=== PATIENT | female | born 1980 | race Hispanic/Latino ===

== ENCOUNTER 2018-03-07 06:25 | Inpatient (IN) | payer OTHER ==
[2018-03-07 06:26] VITALS: BMI 26.6
[2018-03-07] MEDS ORDERED: Albuterol-Ipratrop 3 mg / 0.5 (3 ml) UD IH STA (06:42)
--- NOTE | 2018-03-07 06:50 | ED PDOC ---
Arrival/HPI - General Chief Complaint: Shortness Of Breath Time Seen by Provider: 03/07/18 06:36 Historian: Patient - History of Present Illness Narrative History of Present Illness (Text): 03/07/18 06:41 A 37 year old female, whose past medical history includes hypothyroidism, presents to the emergency department complaining of shortness of breath. Patient reports last week she went to an urgent Care center for similar complaint and was told she has an enlarged heart, therefore recommending her to see a gynecologist. Patient mentions she has an appointment some time this week to see one. Patient ntoes also experiencing palpitations, but denies any chest pain, fever, chills, headache, dizziness, cough, nausea, vomiting, abdominal pain, or any other complaints. No PMD Past Medical History - Provider Review Nursing Documentation Reviewed: Yes - Tetanus Immunization Tetanus Immunization: Unknown - Past Medical History Past Medical History: No Previous - Endocrine/Metabolic Hx Hypothyroidism: Yes - Psychiatric Hx Substance Use: No - Surgical History Other/Comment: pyloric stenosis - Anesthesia Hx Anesthesia: Yes Hx Anesthesia Reactions: No - Suicidal Assessment Feels Threatened In Home Enviroment: No Family/Social History - Physician Review Nursing Documentation Reviewed: Yes Family/Social History: No Known Family HX Smoking Status: Never Smoked Hx Alcohol Use: Yes Frequency of alcohol use: Socially Hx Substance Use: No Allergies/Home Meds Allergies/Adverse Reactions: Allergies No Known Allergies Allergy (Verified 03/07/18 06:30) Home Medications: Home Meds Medication Instructions Recorded Confirmed Control Pill 1 tab PO DAILY 03/07/18 03/07/18 Levothyroxine [Synthroid] 100 mcg PO DAILY 03/07/18 03/07/18 Vilazodone HCl [Viibryd] 40 mg PO DAILY 03/07/18 03/07/18 Review of Systems - Physician Review All systems were reviewed & negative as marked: Yes - Review of Systems Constitutional: absent: Fevers, Night Sweats Respiratory: SOB. absent: Cough Cardiovascular: Palpitations. absent: Chest Pain Gastrointestinal: absent: Abdominal Pain, Nausea, Vomiting Neurological: absent: Headache, Dizziness Physical Exam Vital Signs Reviewed: Yes Vital Signs Temp Pulse Resp BP Pulse Ox 03/07/18 09:36 97.8 F 100 H 22 138/90 100 03/07/18 09:00 107 H 18 135/89 99 03/07/18 07:47 114 H 20 139/99 H 99 03/07/18 06:45 100 03/07/18 06:30 108 H 20 140/90 99 Blood Pressure: Normal Pulse: Regular Respiratory Rate: Normal Appearance: Positive for: Well-Appearing, Non-Toxic, Comfortable Pain Distress: None Mental Status: Positive for: Alert and Oriented X 3 - Systems Exam Head: Present: Atraumatic, Normocephalic Pupils: Present: PERRL Extroacular Muscles: Present: EOMI Conjunctiva: Present: Normal Ears: Present: Normal Mouth: Present: Moist Mucous Membranes Respiratory/Chest: Present: Rales (at basis of lungs) Cardiovascular: Present: Regular Rate and Rhythm, Normal S1, S2. No: Murmurs Abdomen: No: Tenderness, Distention, Peritoneal Signs Upper Extremity: Present: Normal Inspection. No: Cyanosis, Edema Lower Extremity: Present: Normal Inspection. No: Edema Neurological: Present: GCS=15, CN II-XII Intact, Speech Normal Skin: Present: Warm, Dry, Normal Color. No: Rashes Psychiatric: Present: Alert, Oriented x 3, Normal Insight, Normal Concentration Medical Decision Making ED Course and Treatment: 03/07/18 06:44 Impression: 37 year old female with shortness of breath. Physical exam shows rales at basis of lungs. Plan: -- EKG -- Chest X-ray -- Labs -- Venous Blood Gas -- Duoneb -- Blood Culture -- POC Urine -- Reassess and disposition Progress Notes: \ - Lab Interpretations Lab Results: 03/07/18 06:39 03/07/18 06:39 Lab Results 03/07/18 06:44: pO2 40, VBG pH 7.35, VBG pCO2 43.0, VBG HCO3 23.7, VBG Total CO2 25.0, VBG O2 Sat (Calc) 76.9 H, VBG Base Excess -2.0 L, VBG Potassium 3.8, Glucose 115 H, Lactate 1.8, FiO2 21.0, Sodium 135.0, Chloride 103.0, Venous Blood Potassium 3.8 03/07/18 06:39: Sodium 138, Potassium 3.5 L, Chloride 102, Carbon Dioxide 22, Anion Gap 18, BUN 15, Creatinine 0.7, Est GFR ( Amer) > 60, Est GFR (Non- Af Amer) > 60, Random Glucose 112 H, Calcium 8.3 L, Magnesium 1.7, Total Bilirubin 0.6, AST 17, ALT 16, Alkaline Phosphatase 53, Lactate Dehydrogenase 439, Total Creatine Kinase 83, Troponin I < 0.01, NT-Pro-B Natriuret Pep 504 H, Total Protein 7.0, Albumin 4.3, Globulin 2.7, Albumin/Globulin Ratio 1.6 03/07/18 06:39: PT 13.5 H, INR 1.17 H, APTT 27.8, D-Dimer, Quantitative < 200 03/07/18 06:39: WBC 6.7, RBC 4.88, Hgb 13.8, Hct 40.2, MCV 82.4, MCH 28.3, MCHC 34.3, RDW 13.6, Plt Count 290, MPV 10.0, Gran % 81.0 H, Lymph % (Auto) 13.7 L, [place] % (Auto) 4.3, Eos % (Auto) 0.7 L, Baso % (Auto) 0.3, Gran # 5.44, Lymph # ( Auto) 0.9 L, [place] # (Auto) 0.3, Eos # (Auto) 0.1, Baso # (Auto) 0.02 - RAD Interpretation Radiology Orders: 03/07/18 06:47 CHEST PORTABLE [RAD] Stat - EKG Interpretation EKG Interpretation (Text): 03/07/18 06:59 rate 103 lbbb sinus tachycardia - Medication Orders Current Medication Orders: Albuterol/Ipratropium (Duoneb 3 Mg/0.5 Mg (3 Ml) Ud) 3 ml IH [id number] [facility] Last Admin: 03/08/18 02:26 Dose: Not Given Non-Admin Reason: Patient Refused Aspirin (Aspirin Chewable) 81 mg PO DAILY [facility] Last Admin: 03/07/18 11:04 Dose: 81 mg Azithromycin (Zithromax) 500 mg PO DAILY [facility] PRN Reason: Protocol Enoxaparin Sodium (Lovenox) 60 mg SC Q12H [facility] PRN Reason: Protocol Last Admin: 03/08/18 05:32 Dose: 60 mg Subcutaneous Administrations Document 03/08/18 05:32 KOPPS (Rec: 03/08/18 05:33 KOPPS [id number]) Injection Site MAR Injection Site Left Abdomen Charges for Administration # of Subcutaneous Administrations 1 Furosemide (Lasix) 40 mg IVP DAILY JG Ceftriaxone Sodium (Rocephin 1 Gram Ivpb) 1 gm in 100 mls @ 100 mls/hr IVPB DAILY JG PRN Reason: Protocol Levothyroxine Sodium (Synthroid) 100 mcg PO DAILY JG Last Admin: 03/07/18 11:04 Dose: 100 mcg (Vilazodone Hcl [ (Viibryd] 40 Mg)) 40 mg PO DAILY JG Last Admin: 03/07/18 11:04 Dose: Potassium Chloride (K-Dur 20 Meq Er Tab) 20 meq PO BRK JG Last Admin: 03/07/18 11:04 Dose: 20 meq Discontinued Medications Albuterol/Ipratropium (Duoneb 3 Mg/0.5 Mg (3 Ml) Ud) 3 ml IH STAT STA Stop: 03/07/18 06:43 Last Admin: 03/07/18 06:50 Dose: 3 ml Azithromycin (Zithromax) 500 mg PO STAT STA PRN Reason: Protocol Stop: 03/07/18 18:47 Last Admin: 03/07/18 18:53 Dose: 500 mg Furosemide (Lasix) 40 mg IVP ONCE ONE Stop: 03/07/18 14:12 Last Admin: 03/07/18 15:21 Dose: 40 mg MAR Blood Pressure Document 03/07/18 15:21 SUNNY (Rec: 03/07/18 15:21 SUNNY [id number]) Blood Pressure Blood Pressure (100/60-150/90) 141/104 IVP Administration Document 03/07/18 15:21 SUNNY (Rec: 03/07/18 15:21 SUNNY [id number]) Charges for Administration # of IVP Administrations 1 Ceftriaxone Sodium (Rocephin 1 Gram Ivpb) 1 gm in 100 mls @ 100 mls/hr IVPB STAT STA PRN Reason: Protocol Stop: 03/07/18 19:44 Last Admin: 03/07/18 18:52 Dose: 100 mls/hr eMAR Start Stop Document 03/07/18 18:52 SUNNY (Rec: 03/07/18 18:53 SUNNY [id number]) Intravenous Solution Start Date 03/07/18 Start Time 18:52 End Date 03/07/18 End time 19:22 Total Infusion Time 30 - Transfer of Care Patient signed out to Dr:: imm labs and dispo - Scribe Statement The provider has reviewed the documentation as recorded by the Francescoibdiego Vargas Provider Scribe Attestation: All medical record entries made by the Scribe were at my direction and personally dictated by me. I have reviewed the chart and agree that the record accurately reflects my personal performance of the history, physical exam, medical decision making, and the department course for this patient. I have also personally directed, reviewed, and agree with the discharge instructions and disposition. Disposition/Present on Arrival - Present on Arrival Any Indicators Present on Arrival: No History of DVT/PE: No History of Uncontrolled Diabetes: No Urinary Catheter: No History of Decub. Ulcer: No History Surgical Site Infection Following: None - Disposition Have Diagnosis and Disposition been Completed?: Yes Diagnosis: Dyspnea on exertion Disposition: HOSPITALIZED Disposition Time: 07:00 Patient Problems: Current Active Problems Problem Status Onset Dyspnea on exertion Acute Condition: FAIR
[2018-03-07 07:01] LABS: BASO # 0.02 K/mm3 (0.0-2.0); BASO % 0.3 % (0.0-3.0); EOS # 0.1 (0.0-0.7); EOS % 0.7 % (1.5-5.0); GRAN # 5.44 (1.4-6.5); HEMOGLOBIN 13.8 g/dL (12.0-16.0); LYMPH # 0.9 (1.2-3.4); LYMPH % 13.7 % (22.0-35.0); MEAN CELL VOLUME 82.4 fl (80.0-105.0); MEAN CORPUSCULAR HEMOGLOBIN 28.3 pg (25.0-35.0); MEAN CORPUSCULAR HGB CONC 34.3 g/dl (31.0-37.0); MONO # 0.3 (0.1-0.6); MONO % 4.3 % (1.0-6.0); RBC 4.88 10^6/uL (3.5-6.1); RED CELL DISTRIBUTION WIDTH 13.6 % (11.5-14.5); WHITE BLOOD COUNT 6.7 10^3/ul (4.5-11.0)
[2018-03-07 07:09] LABS: ALB/GLOB RATIO 1.6 (1.1-1.8); ALBUMIN 4.3 g/dL (3.0-4.8); ALT/SGPT 16 U/L (7-56); AST/SGOT 17 U/L (14-36); BLOOD UREA NITROGEN 15 mg/dL (7-21); CALCIUM 8.3 mg/dL (8.4-10.5); GFR AFRICAN-AMERICAN > 60; GFR NON-AFRICAN AMERICAN > 60
[2018-03-07 07:21] LABS: B-TYPE NATRIURETIC PEPTIDE 504 pg/mL (0-450); TROPONIN I < 0.01 ng/mL
[2018-03-07 07:21] LABS: VENOUS BLOOD GAS PO2 40 mm/Hg (30-55); VENOUS BLOOD PH 7.35 (7.32-7.43)
[2018-03-07 07:52] LABS: INR 1.17 (0.93-1.08); PROTHROMBIN TIME 13.5 SECONDS (9.4-12.5)
[2018-03-07 07:53] LABS: PARTIAL THROMBOPLASTIN TIME 27.8 Seconds (25.1-36.5)
[2018-03-07 08:26] LABS: D DIMER < 200 ng/mL (0-243)
--- NOTE | 2018-03-07 09:01 | RAD ---
HISTORY: Shortness of breath. COMPARISON: No prior. FINDINGS: LUNGS: Right lower lobe infiltrate with air bronchograms consistent with pneumonia. PLEURA: No significant pleural effusion identified, no pneumothorax apparent. CARDIOVASCULAR: Normal. OSSEOUS STRUCTURES: No significant abnormalities. VISUALIZED UPPER ABDOMEN: Normal. OTHER FINDINGS: None. IMPRESSION: Extensive right lower lobe infiltrate/pneumonia.
--- NOTE | 2018-03-07 09:06 | ED PDOC ---
Physical Exam - Physical Exam Narrative Physical Exam (Text): Signed out to me at change of shift pending labs and disposition. 37 y/o F p/w dyspnea lasting about 2 days, occurred twice over past week. EKG shows LBBB, no previous EKGs. No chest pain. Patient treated as asthma exacerbation at Urgent Care this past week. Bibasilar crackles on auscultation. CXR shows possible R lower infiltrate, no fever or leukocytosis. ProBNP mildly elevated. Possible cardiomegaly? Dr. Hall accepts patient to her service covering for Dr. Luis and recommends Dr. Gutierrez for consultation. Vital Signs Pulse Resp BP Pulse Ox 03/07/18 07:47 114 H 20 139/99 H 99 03/07/18 06:45 100 03/07/18 06:30 108 H 20 140/90 99 Medical Decision Making - Lab Interpretations Lab Results: 03/07/18 06:39 03/07/18 06:39 Lab Results 03/07/18 06:44: pO2 40, VBG pH 7.35, VBG pCO2 43.0, VBG HCO3 23.7, VBG Total CO2 25.0, VBG O2 Sat (Calc) 76.9 H, VBG Base Excess -2.0 L, VBG Potassium 3.8, Glucose 115 H, Lactate 1.8, FiO2 21.0, Sodium 135.0, Chloride 103.0, Venous Blood Potassium 3.8 03/07/18 06:39: Sodium 138, Potassium 3.5 L, Chloride 102, Carbon Dioxide 22, Anion Gap 18, BUN 15, Creatinine 0.7, Est GFR ( Amer) > 60, Est GFR (Non- Af Amer) > 60, Random Glucose 112 H, Calcium 8.3 L, Magnesium 1.7, Total Bilirubin 0.6, AST 17, ALT 16, Alkaline Phosphatase 53, Lactate Dehydrogenase 439, Total Creatine Kinase 83, Troponin I < 0.01, NT-Pro-B Natriuret Pep 504 H, Total Protein 7.0, Albumin 4.3, Globulin 2.7, Albumin/Globulin Ratio 1.6 03/07/18 06:39: PT 13.5 H, INR 1.17 H, APTT 27.8, D-Dimer, Quantitative < 200 03/07/18 06:39: WBC 6.7, RBC 4.88, Hgb 13.8, Hct 40.2, MCV 82.4, MCH 28.3, MCHC 34.3, RDW 13.6, Plt Count 290, MPV 10.0, Gran % 81.0 H, Lymph % (Auto) 13.7 L, [place] % (Auto) 4.3, Eos % (Auto) 0.7 L, Baso % (Auto) 0.3, Gran # 5.44, Lymph # ( Auto) 0.9 L, [place] # (Auto) 0.3, Eos # (Auto) 0.1, Baso # (Auto) 0.02 - RAD Interpretation Radiology Orders: 03/07/18 06:47 CHEST PORTABLE [RAD] Stat - Medication Orders Current Medication Orders: Discontinued Medications Albuterol/Ipratropium (Duoneb 3 Mg/0.5 Mg (3 Ml) Ud) 3 ml IH STAT STA Stop: 03/07/18 06:43 Last Admin: 03/07/18 06:50 Dose: 3 ml Disposition/Present on Arrival - Present on Arrival Any Indicators Present on Arrival: No History of DVT/PE: No History of Uncontrolled Diabetes: No Urinary Catheter: No History of Decub. Ulcer: No History Surgical Site Infection Following: None - Disposition Have Diagnosis and Disposition been Completed?: Yes Diagnosis: Dyspnea on exertion Disposition: HOSPITALIZED Disposition Time: 09:06 Patient Plan: Admission, Telemetry Condition: FAIR Forms: [employer] (Lux[place]ish)
--- NOTE | 2018-03-07 09:13 | CARD ---
APPROVED REPORT EKG Measurement Heart [id number] <Conclusion> Sinus tachycardia Left bundle branch block No change
[2018-03-07] MEDS ORDERED: cefTRIAXone 1 gm 1 GM/100 ML BAG IVPB SCH (10:00)
[2018-03-07] MEDS ORDERED: Levothyroxine 100 MCG TAB PO SCH (10:30)
[2018-03-07] MEDS: Potassium Chloride 20 mEq ER Tab PO SCH (11:04)
[2018-03-07] MEDS ORDERED: Iohexol 350 MG/100 ML VIAL ONE (14:17)
[2018-03-07] MEDS: Enoxaparin 60 mg Syringe SC SCH (15:20)
--- NOTE | 2018-03-07 15:35 | CT ---
PROCEDURE: CT Chest with contrast (Pulmonary Angiogram) HISTORY: Chest pain COMPARISON: None available. TECHNIQUE: Axial computed tomography images were obtained of the chest in the pulmonary arterial phase of enhancement. Coronal and sagittal reformatted images were created and reviewed. Intravenous contrast dose: 100 cc Omnipaque 350. Mean Hounsfield unit values in the main pulmonary artery: 292.50. Radiation dose: Total exam DLP = 612.75 mGy-cm. This CT exam was performed using one or more of the following dose reduction techniques: Automated exposure control, adjustment of the mA and/or kV according to patient size, and/or use of iterative reconstruction technique. FINDINGS: PULMONARY ARTERIES: Unremarkable. No pulmonary embolism. AORTA: No acute findings. No thoracic aortic aneurysm. LUNGS: Subsegmental infiltrates right middle lobe, right lower lobe. Additional findings in the anterior segment right upper lobe noted. Similar less pronounced changes left lower lobe. PLEURAL SPACES: Unremarkable. No effusion or pneuomothorax. HEART: Unremarkable. No cardiomegaly. No significant pericardial effusion. LYMPH NODES: No lymphadenopathy. BONES, CHEST WALL: Unremarkable. No fracture or destructive lesion OTHER FINDINGS: Unremarkable. IMPRESSION: Unremarkable CT pulmonary angiogram. No pulmonary embolus. Multifocal subsegmental infiltrates affecting the all 3 lobes of the right lung and to lesser extent left lower lobe. Findings are likely acute infectious/inflammatory in nature.
[2018-03-07 17:25] LABS: BARBITURATES, UR NEGATIVE (NEGATIVE); BENZODIAZEPINES, UR NEGATIVE (NEGATIVE); OPIATES, UR NEGATIVE (NEGATIVE); PHENCYCLIDINE, UR NEGATIVE (NEGATIVE)
[2018-03-07] MEDS ORDERED: cefTRIAXone 1 gm 1 GM/100 ML BAG IVPB STA (18:45)
--- NOTE | 2018-03-07 18:51 | HP ---
ADMISSION NOTE HISTORY OF PRESENT ILLNESS: Ms. He is an young 37-year-old female presented to the ED with shortness of breath. She had episodic shortness of breath for past few weeks. She had an episode last week also, went to the urgent care and was told that she has enlarged heart. She was recommended to see a dough puncher. She has not made an appointment yet. Chest x-ray done in the ED showed cardiomegaly. She was found to be tachycardic. CT chest done today showed multifocal pneumonia on the right side and the left side. No fever. No cough with expectoration, shortness of breath at rest. PAST MEDICAL HISTORY: Hypothyroidism. PAST SURGICAL HISTORY: None. PERSONAL HISTORY: Nonsmoker. No history of alcohol abuse. FAMILY HISTORY: Noncontributory. SOCIAL HISTORY: Lives at home. ALLERGIES: NO KNOWN DRUG ALLERGIES REVIEW OF SYSTEMS: As per HPI. Rest of 12-point review of systems reviewed negative. PHYSICAL EXAMINATION: GENERAL: Comfortable in bed, mild respiratory distress. VITAL SIGNS: Heart rate is 108 per minute, respiratory rate 20 per minute, blood pressure 140/90, pulse ox is 99% on room air. HEENT: Pallor positive. NECK: Supple. No lymphadenopathy. CHEST: Air entry present and equal bilateral. No added sounds. CARDIOVASCULAR: S1, S2 normal. No murmur. No gallop. ABDOMEN: Soft, nontender. No hepatosplenomegaly. EXTREMITIES: No edema. EKG, sinus tachycardia, left bundle-branch block. Chest x-ray, cardiomegaly. LABORATORY DATA: Sodium 138, potassium 3.6, BUN 15, creatinine 0.7, BNP 504. White count 6.7, hemoglobin 13.8, hematocrit 40.2, platelets 290, granulocyte 81%. lymphocyte 13%. HOME MEDICATION: Synthroid. ASSESSMENT/ Plan : B/L PNA CHF Tachycardia Granulocytosis She will be admitted to telemetry monitoring. Cardiology consultation, Dr. Gutierrez requested. CT chest reviewed multifocal pneumonia. We will start ceftriaxone 1 g daily, Zithromax 500 mg p.o. daily. ID consultation, Dr. Saha requested. Continue Synthroid 100 mcg daily. Aspirin 81 mg daily, potassium 20 mEq, Lasix 40 mg IV daily. Cardiology consultation, Dr. Brown, covering for Dr. Gutierrez appreciated. Started her on Lovenox 60 mg subcutaneous every 12 for possible cardiac ischemia. We will continue that. CT angio negative for PE. Etelvina Hall MD A[place]LA[facility]
--- NOTE | 2018-03-07 23:37 | CON ---
DATE: 03/07/2018 CARDIOLOGY CONSULTATION REASON FOR CONSULTATION: Shortness of breath and left bundle-branch block. HISTORY OF PRESENT ILLNESS: The patient is a 37-year-old female who has a history of anxiety, history of hypothyroidism, presented because of shortness of breath for the past few days. She presented to an urgent center and was treated for asthma; however, without significant improvement. The patient denies retrosternal chest pain, and denies any dizziness or syncope. The patient has been on control pills for years, but denies any history of DVT or pulmonary embolism in the past. The patient is unaware of any prior cardiac history and does not recall having an EKG done in the past. The patient is scheduled to see chinese language professor at [facility] next week, but she does not know his name. The patient was found to have left bundle-branch block on the EKG. SOCIAL HISTORY: Nonsmoker, nondrinker. 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 REVIEW OF SYSTEMS: No fever or chills. No productive cough. No dizziness or syncope. MEDICATIONS: Aspirin 81 mg once a day, K-Dur 20 mEq once a day, Synthroid 100 mcg once a day. PHYSICAL EXAMINATION: GENERAL: The patient is a young middle-aged female, who does not appear to be in any distress. VITAL SIGNS: Blood pressure 125/85, heart rate 97, temperature 97.7, respirations 17. HEENT: Normocephalic. CHEST: Clear. HEART: S1 and S2 regular. ABDOMEN: Soft. EXTREMITIES: No edema. No calf tenderness. LABORATORY DATA: CBC, WBC 6.7, hemoglobin 13.8, hematocrit 40.2, platelet count 190,000. PT 13.5, INR is 1.17, PTT 27.8. D-dimer is less than 200. SMA-7, sodium 138, potassium 3.5, chloride 102, CO2 of 22, chloride is 112, BUN 15, creatinine 0.7. One set of troponin is negative. ProBNP is 504. Chest x-ray revealed mild cardiomegaly, right lower lobe infiltrate. EKG revealed sinus tachycardia at the rate of 103, left bundle-branch block. ASSESSMENT: 1. Shortness of breath, cardiomegaly and left bundle-branch block, rule out underlying cardiomyopathy. 2. Rule out pulmonary embolism. The patient has been on control pills for many years. 3. Hypothyroidism. 4. Mild hypokalemia. RECOMMENDATIONS: Continue aspirin 81 mg once a day, K-Dur 20 mEq once a day, Synthroid at 100 mcg once a day, I will administer one dose of 40 mg of IV Lasix, Lovenox 60 mg subcutaneous twice a day. Obtain stat CT angio of the chest. The patient is scheduled for an echocardiography study to be done tomorrow. In the meantime, the patient is on p.r.n. fluoxetine. The patient's case was discussed at length with the patient's family at the bedside. Colton Brown MD
[2018-03-08] MEDS: Albuterol-Ipratrop 3 mg / 0.5 (3 ml) UD IH SCH ×3 (02:26→07:57)
[2018-03-08] MEDS: Enoxaparin 60 mg Syringe SC SCH (05:32)
[2018-03-08 06:19] LABS: BASO # 0.02 K/mm3 (0.0-2.0); BASO % 0.4 % (0.0-3.0); EOS # 0.1 (0.0-0.7); EOS % 2.7 % (1.5-5.0); GRAN % 63.2 % (50.0-68.0); HEMOGLOBIN 13.1 g/dL (12.0-16.0); LYMPH # 1.2 (1.2-3.4); LYMPH % 25.9 % (22.0-35.0); MEAN CELL VOLUME 81.9 fl (80.0-105.0); MEAN CORPUSCULAR HEMOGLOBIN 27.9 pg (25.0-35.0); MEAN PLATELET VOLUME 9.9 fl (7.0-11.0); MONO # 0.4 (0.1-0.6); MONO % 7.8 % (1.0-6.0); RBC 4.7 10^6/uL (3.5-6.1); RED CELL DISTRIBUTION WIDTH 13.7 % (11.5-14.5); WHITE BLOOD COUNT 4.8 10^3/ul (4.5-11.0)
[2018-03-08 06:35] LABS: BLOOD UREA NITROGEN 17 mg/dL (7-21); CALCIUM 8.9 mg/dL (8.4-10.5); GFR AFRICAN-AMERICAN > 60; GFR NON-AFRICAN AMERICAN > 60
[2018-03-08] MEDS: Potassium Chloride 20 mEq ER Tab PO SCH (07:52)
[2018-03-08 08:46] LABS: FREE T4 1.22 ng/dL (0.78-2.19)
[2018-03-08] MEDS: cefTRIAXone 1 gm 1 GM/100 ML BAG IVPB SCH (09:33)
--- NOTE | 2018-03-08 09:41 | PN ---
DATE: 03/08/2018 SUBJECTIVE: A 37-year-old white female with history of hypothyroidism who was admitted with some shortness of breath without cough or sputum production, low-grade fever, difficulty breathing. Patient had an elevated BNP. CT angiogram of the chest showed bilateral infiltrates. The patient is a nonsmoker, has no history of asthma or COPD. The patient does have children and has a child with chronic bronchitis, recent exposure. Patient denies any rash, any chest pain, palpitations, etc. She also has history of hypothyroidism, on Synthroid. PHYSICAL EXAMINATION: CHEST: Shows some rhonchi both bases. ABDOMEN: Benign. EXTREMITIES: No cyanosis, clubbing or edema. HEART: Regular sinus rhythm. No significant murmurs. LABORATORY DATA: Unremarkable at this point. Her BNP is elevated at 504. Her troponins are negative. Patient is on IV antibiotics. IMPRESSION: Bilateral pneumonia in a 37-year-old white female with history of hypothyroidism and no history of prior lung disease. Venkata Luis MD
[2018-03-08] MEDS ORDERED: Levothyroxine 100 MCG TAB PO STA (09:44)
[2018-03-08] MEDS ORDERED: Levalbuterol 0.63 MG/3 ML Inhal Soln UD IH PRN (12:09)
--- NOTE | 2018-03-08 13:53 | CARD ---
APPROVED REPORT EXAM: Two-dimensional and M-mode echocardiogram with Doppler and color Doppler. INDICATION LBBB 2D DIMENSIONS Left Atrium (2D)4.3 (1.6-4.0cm)IVSd1.1 (0.7-1.1cm) LVDd6.5 (3.9-5.9cm)PWd1.2 (0.7-1.1cm) LVDs5.8 (2.5-4.0cm)FS (%) 10.2 % LVEF (%)22.0 (>50%) M-Mode DIMENSIONS Aortic Root3.40 (2.2-3.7cm)Aortic Cusp Exc.1.70 (1.5-2.0cm) Aortic Valve AoV Peak Chbiyeia058.0cm/Jaimee Peak GR.9mmHg Mitral Valve E/A ratio0.0 TDI E/Lateral E'0.0E/Medial E'0.0 Tricuspid Valve TR Peak [id number] [id number] Peak Gr.36mmHg [id number] LEFT VENTRICLE The Left Ventricle is moderately dilated. There is normal left ventricular wall thickness. The systolic function is severely impaired. Akinetic Septum RIGHT VENTRICLE The right ventricle is borderline dilated. There is normal right ventricular wall thickness. RV Systolic function is mildly to moderately reduced. ATRIA The left atrium is borderline dilated. The right atrium size is normal. AORTIC VALVE The aortic valve is normal in structure. There is mild aortic regurgitation. There is no aortic valvular stenosis. MITRAL VALVE The mitral valve is normal in structure. Mitral regurgitation is mild to moderate. There is no mitral valve stenosis. TRICUSPID VALVE The tricuspid valve is normal in structure. There is mild to moderate tricuspid regurgitation. There is mild to moderate pulmonary hypertension. GREAT VESSELS The aortic root is normal in size. The IVC is normal in size and collapses >50% with inspiration. PERICARDIAL EFFUSION There is no pericardial effusion. <Conclusion> The Left Ventricle is moderately dilated. There is normal left ventricular wall thickness. The systolic function is severely impaired. Akinetic Septum There is mild aortic regurgitation. Mitral regurgitation is mild to moderate. There is mild to moderate tricuspid regurgitation. There is mild to moderate pulmonary hypertension.
[2018-03-08] MEDS: Potassium Chloride 20 mEq ER Tab PO ONE ×2 (14:05→18:06)
--- NOTE | 2018-03-08 15:53 | CP.PCM.CON ---
History of Present Illness - History of Present Illness History of Present Illness: 37 year old female with PMH of hypothyroidism, history of pyloric stenosis [place] [facility] [place]ness of breath and an episode of coughing. She apparently was seen last week in an urgent care center and was told she had an enlarged and was advised to see a postal mail carrier. The patient was scheduled to see one this week. She denies fever or chills, has some malaise, no sore throat , no abdominal pain, no rhinorrhea, no headache or dizziness, no chest pain, no diarrhea, no dysuria. CT chest was done which shows infiltrates on the right lung. Infectious Diseases consult is requested to further evaluate and manage. Review of Systems - Review of Systems All systems: reviewed and no additional remarkable complaints except (as per HPI ) Past Patient History - Tetanus Immunizations Tetanus Immunization: Unknown - Past Social History Smoking Status: Never Smoked - CARDIAC Hx Cardiac Disorders: No - NEUROLOGICAL Hx Neurological Disorder: No - HEENT Hx HEENT Problems: No - RENAL Hx Chronic Kidney Disease: No - ENDOCRINE/METABOLIC Hx Hypothyroidism: Yes - INTEGUMENTARY Hx Dermatological Problems: No - MUSCULOSKELETAL/RHEUMATOLOGICAL Hx Musculoskeletal Disorders: No Hx Falls: No - GENITOURINARY/GYNECOLOGICAL Hx Genitourinary Disorders: No - PSYCHIATRIC Hx Psychophysiologic Disorder: No - SURGICAL HISTORY Hx Surgeries: Yes (C section x2) Other/Comment: pyloric stenosis - ANESTHESIA Hx Anesthesia: Yes Hx Anesthesia Reactions: No Meds Allergies/Adverse Reactions: Allergies Allergy/AdvReac Type Severity Reaction Status Date / Time No Known Allergies Allergy Verified 03/07/18 06:30 - Medications Medications: Current Medications Albuterol/Ipratropium (Duoneb 3 Mg/0.5 Mg (3 Ml) Ud) 3 ml IH [id number] [facility] Aspirin (Aspirin Chewable) 81 mg PO DAILY [facility] Last Admin: 03/07/18 11:04 Dose: 81 mg Azithromycin (Zithromax) 500 mg PO DAILY [facility] PRN Reason: Protocol Enoxaparin Sodium (Lovenox) 60 mg SC Q12H [facility] PRN Reason: Protocol Last Admin: 03/07/18 15:20 Dose: 60 mg Furosemide (Lasix) 40 mg IVP DAILY [facility] Ceftriaxone Sodium (Rocephin 1 Gram Ivpb) 1 gm in 100 mls @ 100 mls/hr IVPB DAILY [facility] PRN Reason: Protocol Levothyroxine Sodium (Synthroid) 100 mcg PO DAILY [facility] Last Admin: 03/07/18 11:04 Dose: 100 mcg (Vilazodone Hcl [ (Viibryd] 40 Mg)) 40 mg PO DAILY [facility] Last Admin: 03/07/18 11:04 Dose: Not Given Potassium Chloride (K-Dur 20 Meq Er Tab) 20 meq PO BRK [facility] Last Admin: 03/07/18 11:04 Dose: 20 meq Physical Exam - Constitutional Appears: Non-toxic - Head Exam Head Exam: NORMAL INSPECTION - Neck Exam Neck exam: Negative for: Lymphadenopathy, Meningismus - Respiratory Exam Respiratory Exam: Rales (on the right base) - Cardiovascular Exam Cardiovascular Exam: +S1, +S2 - GI/Abdominal Exam GI & Abdominal Exam: Soft. absent: Tenderness Results - Vital Signs Recent Vital Signs: Last Vital Signs Temp 98 F 03/07/18 17:42 Pulse 89 03/07/18 22:00 Resp 17 03/07/18 17:42 BP 135/94 H 03/07/18 17:42 Pulse Ox 98 03/07/18 17:42 - Labs Result Diagrams: 03/08/18 05:30 03/08/18 05:30 Labs: Laboratory Results - last 24 hr 03/07/18 03/07/18 03/07/18 16:35 16:35 17:11 Troponin I < 0.01 Urine HCG, Qual Negative Urine Opiates Screen Negative Urine Methadone Screen Negative Ur Barbiturates Screen Negative Ur Phencyclidine Scrn Negative Ur Amphetamines Screen Negative U Benzodiazepines Scrn Negative U Oth Cocaine Metabols Negative U Cannabinoids Screen Negative Assessment & Plan - Assessment and Plan (Free Text) Plan: Assessment Consider right sided community-acquired pneumonia cardiomegaly, etiology to be determined hypothyroidism history of pyloric stenosis Plan Started Rocephin and Zithromax and will follow up PCT, blood, sputum cx, urine Legionella follow up 2D echo results and further Cardiology recommendations will monitor clinically
--- NOTE | 2018-03-08 16:58 | PN ---
DATE: 03/08/2018 REASON FOR CONSULTATION AND FOLLOWUP: Shortness of breath, left bundle branch block, and multilobar pneumonia. SUBJECTIVE: Denies any chest pain, shortness of breath, or any palpitations. Had shortness of breath and palpitation on admission, but not now. OBJECTIVE: GENERAL: Not in apparent distress, lying flat on the bed. VITAL SIGNS: Temperature afebrile, heart rate 90, blood pressure 131/90. HEENT: PERRLA. Extraocular muscles intact. NECK: Supple. No carotid bruits, no thyromegaly. CHEST: Clear to auscultation. HEART: S1 and S2, regular. ABDOMEN: Soft. EXTREMITIES: Clubbing and cyanosis negative. LABORATORY DATA: Blood workup as follows: WBC 4.8, hemoglobin 13.8, hematocrit 38.5, and platelet count 271. Chemistry shows sodium 140, potassium 3.7, chloride 106, carbon dioxide 20, anion gap of 15. BUN 17, creatinine 0.8. TSH 7.46. Troponin 0.01, negative. IMPRESSION: A 37-year-old female with past medical history significant for hypothyroid, admitted with complaint of shortness of breath and palpitation, found to be multilobar pneumonia, negative for pulmonary embolism. Patient had echocardiography done, result pending. Patient has a baseline left bundle, not sure of the chronicity. Patient states that her son also has left bundle, Tetralogy of Fallot and father also has left bundle-branch block. Denies any chest pain but complained recently of dyspnea on exertion. Discussed with the patient. Discussed with Dr. Luis. Since the patient has recent pneumonia, suggest a stress test for risk stratification in 4 weeks. Patient agreed. Patient will go to the PMD, has an appointment with marble mason at [facility] on Thursday. Patient will follow up with them. We will discontinue telemetry. Interim, continue broad-spectrum antibiotics. Continue baby aspirin. We will change DuoNeb nebulizer treatment to Xopenex to prevent from palpitation. Continue levothyroxine. Discussed with Dr. Luis. Discussed with the patient. We will discontinue as mentioned DuoNeb nebulizer and change to Xopenex. We will supplement potassium too. Will review Echo and after echo further recoomendation would be made. Santo Gutierrez MD [facility]
[2018-03-09 06:40] LABS: BASO # 0.02 K/mm3 (0.0-2.0); BASO % 0.4 % (0.0-3.0); EOS # 0.2 (0.0-0.7); EOS % 3.9 % (1.5-5.0); GRAN # 2.78 (1.4-6.5); GRAN % 56.4 % (50.0-68.0); HEMOGLOBIN 13.3 g/dL (12.0-16.0); LYMPH # 1.5 (1.2-3.4); LYMPH % 29.5 % (22.0-35.0); MEAN CELL VOLUME 83.3 fl (80.0-105.0); MEAN CORPUSCULAR HEMOGLOBIN 27.8 pg (25.0-35.0); MEAN CORPUSCULAR HGB CONC 33.4 g/dl (31.0-37.0); MONO # 0.5 (0.1-0.6); MONO % 9.8 % (1.0-6.0); RBC 4.78 10^6/uL (3.5-6.1); RED CELL DISTRIBUTION WIDTH 13.5 % (11.5-14.5); WHITE BLOOD COUNT 4.9 10^3/ul (4.5-11.0)
[2018-03-09 06:47] LABS: ALB/GLOB RATIO 1.6 (1.1-1.8); ALT/SGPT 15 U/L (7-56); AST/SGOT 15 U/L (14-36); BLOOD UREA NITROGEN 19 mg/dL (7-21); CALCIUM 9.5 mg/dL (8.4-10.5); GFR AFRICAN-AMERICAN > 60; GFR NON-AFRICAN AMERICAN > 60; HDL CHOLESTEROL 60 mg/dL (29-60)
[2018-03-09] MEDS ORDERED: Lidocaine 2% Inj (20ml) ONE (06:52)
[2018-03-09] MEDS ORDERED: Iodixanol 320 MG/ML 100 ML BOTTLE IV ONE (06:53)
[2018-03-09] MEDS ORDERED: Iohexol 350mgl/ml 50 ML ONE (06:53)
[2018-03-09] MEDS ORDERED: Iodixanol 320 MG/ML 200 ML BOTTLE IV ONE (06:53)
[2018-03-09] MEDS ORDERED: Phenylephrine 10 mg/ml Inj ONE (06:55)
[2018-03-09] MEDS ORDERED: Nitroglycerin 50mg in D5W 50 MG/250 ML BOTTLE IV ONE (06:58)
[2018-03-09] MEDS ORDERED: Verapamil 2 ML ONE (06:58)
[2018-03-09 07:03] LABS: LDL CHOLESTEROL 96 mg/dL (0-129)
[2018-03-09] MEDS ORDERED: Midazolam 2 MG/2 ML VIAL ONE ×2 (07:42→08:04)
[2018-03-09] MEDS ORDERED: Bacitracin 500 Units/gm Oint Foilpak UD TOP ONE (08:42)
[2018-03-09] MEDS ORDERED: Sodium Chloride 0.9% 1,000 ML IV SCH (08:45)
--- NOTE | 2018-03-09 09:11 | CPOSTOP ---
DATE: 03/09/2018 CARDIOVASCULAR LAB POST PROCEDURE NOTE DICTATING PHYSICIAN: Santo Gutierrez MD. 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 TYPE OF ANESTHESIA: Moderate conscious sedation, total dose 2 mg of Versed, 100 mcg of fentanyl given periodically. Started 1 mg of Versed, 50 of fentanyl. PRE-PROCEDURE DIAGNOSIS: Cardiomyopathy. PROCEDURE PERFORMED: Left heart catheterization. FINDINGS: 1. Normal coronaries. 2. Mid LAD intramyocardial course (myocardial bridge). 3. Decreased LV function, ejection fraction 25% (nonischemic cardiomyopathy) FINAL DIAGNOSES: Nonischemic cardiomyopathy, normal coronaries. POST PROCEDURE PATIENT CONDITION: Stable. VASCULAR ACCESS SITE: Left radial artery. CLOSURE DEVICE: TR Band. TOTAL RADIATION DOSE: 3886.1 milligray unit. FLUORO TIME: 2.5 minutes. Santo Gutierrez MD cc: Venkata Luis MD
--- NOTE | 2018-03-09 09:19 | PN ---
DATE: 03/09/2018 SUBJECTIVE: The patient admitted with severe shortness of breath, palpitations and found to have pneumonia on CT, but also found on echo to have evidence of possible pulmonary hypertension and patient admitted with an elevated BNP of over 500. The patient was seen in consult with Dr. Gutierrez. The inferior vena cava is normal in size, but collapsed with greater than inspiration. There is no pericardial effusion. The left ventricle was mildly dilated. Normal left ventricular wall thickness. The systolic function was severely impaired with an akinetic septum, mild AI, mild mitral regurgitation and [id number] pulmonary hypertension. PLAN: Take the patient to catheterization today because of the abnormalities found and the association with mild congestive heart failure. The patient will be in catheterization today with Dr. Gutierrez and will be followed as an outpatient as post catheterization. Vital signs today are stable. Temperature is 98.1, blood pressure 120/76 and O2 sat is 99. Venkata Luis MD
[2018-03-09] MEDS: Levothyroxine 125 MCG TAB PO SCH (09:43)
[2018-03-09] MEDS: cefTRIAXone 1 gm 1 GM/100 ML BAG IVPB SCH (09:53)
--- NOTE | 2018-03-09 10:45 | CP.PCM.PN ---
Subjective - Date & Time of Evaluation Date of Evaluation: 03/09/18 Time of Evaluation: 08:50 - Subjective Subjective: Patient is feeling a little better, no fevers overnight, no cough, breathing a little better, no nausea or diarrhea. No chest pain. Objective - Vital Signs/Intake and Output Vital Signs (last 24 hours): Temp Pulse Resp BP Pulse Ox 98.1 F 83 20 120/76 99 03/09/18 06:00 03/09/18 06:00 03/09/18 06:00 03/09/18 06:00 03/09/18 06:00 Intake and Output: 03/09/18 03/09/18 06:59 18:59 Intake Total 1251 Balance 1251 - Medications Medications: Current Medications Aspirin (Aspirin Chewable) 81 mg PO DAILY [facility] Last Admin: 03/09/18 05:57 Dose: 81 mg Azithromycin (Zithromax) 500 mg PO DAILY [facility] PRN Reason: Protocol Last Admin: 03/08/18 09:34 Dose: 500 mg Carvedilol (Coreg) 3.125 mg PO BID [facility] Last Admin: 03/08/18 18:02 Dose: 3.125 mg Digoxin (Lanoxin) 0.25 mg PO 1400 [facility] Escitalopram Oxalate (Lexapro) 20 mg PO DAILY [facility] Last Admin: 03/08/18 18:02 Dose: Not Given Furosemide (Lasix) 40 mg PO DAILY [facility] Ceftriaxone Sodium (Rocephin 1 Gram Ivpb) 1 gm in 100 mls @ 100 mls/hr IVPB DAILY [facility] PRN Reason: Protocol Last Admin: 03/08/18 09:33 Dose: 100 mls/hr Sodium Chloride (Sodium Chloride 0.9%) 1,000 mls @ 100 mls/hr IV .Q10H [facility] Stop: 03/09/18 11:00 Levalbuterol HCl (Xopenex) 0.63 mg IH [id number] PRN PRN Reason: Shortness of Breath Levothyroxine Sodium (Synthroid) 125 mcg PO 0600 [facility] Lisinopril (Zestril) 2.5 mg PO DAILY [facility] (Vilazodone Hcl [ (Viibryd] 40 Mg)) 40 mg PO DAILY [facility] Last Admin: 03/08/18 11:51 Dose: Not Given Spironolactone (Aldactone) 25 mg PO DAILY [facility] - Labs Labs: 03/09/18 06:00 03/09/18 06:00 PT 13.5 SECONDS (9.4-12.5) H 03/07/18 06:39 INR 1.17 (0.93-1.08) H 03/07/18 06:39 APTT 27.8 Seconds (25.1-36.5) 03/07/18 06:39 - Constitutional Appears: Non-toxic, Chronically Ill - Head Exam Head Exam: NORMAL INSPECTION - ENT Exam ENT Exam: Mucous Membranes Moist - Neck Exam Neck Exam: absent: Meningismus - Respiratory Exam Respiratory Exam: Decreased Breath Sounds. absent: Rales - Cardiovascular Exam Cardiovascular Exam: +S1, +S2 - GI/Abdominal Exam GI & Abdominal Exam: Soft. absent: Tenderness Assessment and Plan - Assessment and Plan (Free Text) Plan: Assessment Consider right sided community-acquired pneumonia cardiomyopathy with decreased left ventricular function, etiology to be determined hypothyroidism history of pyloric stenosis Plan continue Rocephin and Zithromax day 2; PCT is less than 0.05, blood cx are negative; awaiting urine Legionella Ag follow up Coxsackie serologies reviewed 2D echo results and will follow up further Cardiology recommendations and results of the Cardiac catheterization will continue to monitor clinically discussed with patient and family at length
--- NOTE | 2018-03-09 12:30 | CARD ---
APPROVED REPORT Date of service: 03/09/2018 Procedure(s) performed: Left Heart Catheterization HISTORY The patient is a 37 year-old female with a history of : most recent EF: 22%. (EF Method: RADIONUCLIDE), peripheral vascular disease, hypertension , Admitted with SOB, CHF, pneumonia, palpitation, and severely decreased LV FX,and enlarged heart. INDICATION The indication(s) include : dyspnea, CHF, CMP, and emlarged heart by Echo and severely decreased Lv Fx.EF-20-25%. CASE TECHNIQUE The patient was brought urgently to the Cardiac Catheterization Laboratory in a fasting state and was prepped and draped in a sterile manner. The left wrist was infiltrated with 2% Lidocaine subcutaneous anesthesia. A 6FR GLIDESHEATH ACCESS KIT sheath was inserted into the left radial artery without difficulty. Coronary angiography was performed using coronary diagnostic catheters. The left coronary system was accessed and visualized with a Diagnostic ,5 Fr JL 3.5 catheter. The right coronary system was accessed and visualized with a Diagnostic ,5 Fr JL 3.5 catheter. The left ventricle was accessed and visualized with a 5 Fr Pigtail 145 (Angled) catheter. Left ventricular/Aortic Valve gradient assessed on pullback. Left ventriculogram was performed in TUCKER projection. Closure device was deployed with a Fr TR Band (Regular) without any complications. The patient tolerated the procedure well and there were no complications associated with the procedure. Vessel Analysis The patient's coronary anatomy is right dominant. The left main coronary artery is a large size vessel without significant stenosis. The left main bifurcates to the left anterior descending and circumflex. The left anterior descending artery is a large size vessel without significant stenosis. Mid LAD has intra myocardial course The first diagonal branch is a small size vessel with intimal irregularities. The second diagonal branch is a large size vessel without significant stenosis. The third diagonal branch is a small size vessel without significant stenosis. The circumflex artery is a large size vessel with intimal irregularities and without significant stenosis. The first obtuse marginal branch is a medium size vessel with intimal irregularities and without significant stenosis. The second obtuse marginal branch is a small size vessel without significant stenosis. The right coronary artery is a large size vessel without significant stenosis. The right posterior descending artery is a large size vessel without significant stenosis. The right posterolateral branch is a large size vessel with intimal irregularities and without significant stenosis. Left Ventricle The left ventricle is enlarged in size with severely decreased contractility. Non-Ischemic cardiomyopathy. The left ventricular ejection fraction is estimated to be 20-25%. The left ventricular end diastolic pressure is 15-18 mmHg. There was no gradient across the aortic valve upon pullback. Conclusion Normal coronaries Non Ischemic CMP- EF-20-25%, EDP-15-18 mmof hg. Recommendations Aggressive Medical Therapy Digoxin, Diuretics, spironolactone, CRISTIAN, and Coreg Re -assess Lv Fx in 3-6 months and if remains less than 35%, consider AICD. CC; Atul Pinto MD.
[2018-03-09 13:51] VITALS: PULSE 82
[2018-03-09] MEDS ORDERED: Digoxin 250 mcg (0.25 mg) Tab PO SCH (14:00)
--- NOTE | 2018-03-09 15:32 | RAD ---
HISTORY: COMPARISON: 03/07/2018. TECHNIQUE: Chest PA and lateral FINDINGS: LINES AND TUBES: None. LUNG AND PLEURA: The lungs are well inflated and clear. There is interval near complete resolution of right lower lobe pneumonia. No pleural effusion or pneumothorax. HEART AND MEDIASTINUM: The heart is not enlarged. The hilar and mediastinal contours are within normal limits. SKELETAL STRUCTURES: The bony structures are within normal limits for the patient's age. VISUALIZED UPPER ABDOMEN: Normal. OTHER FINDINGS: None. IMPRESSION: Interval near complete resolution of right lower lobe pneumonia. No active pulmonary disease.
[2018-03-10 00:04] VITALS: RESP 18
[2018-03-10] MEDS: Levothyroxine 125 MCG TAB PO SCH (06:23)
[2018-03-10 06:40] VITALS: TEMP 98; O2SAT 100
[2018-03-10 06:41] LABS: BASO # 0.03 K/mm3 (0.0-2.0); BASO % 0.6 % (0.0-3.0); EOS # 0.1 (0.0-0.7); EOS % 2.4 % (1.5-5.0); GRAN # 3.17 (1.4-6.5); GRAN % 63.6 % (50.0-68.0); HEMOGLOBIN 13.4 g/dL (12.0-16.0); LYMPH # 1.2 (1.2-3.4); LYMPH % 23.2 % (22.0-35.0); MEAN CELL VOLUME 83.5 fl (80.0-105.0); MEAN CORPUSCULAR HEMOGLOBIN 28.3 pg (25.0-35.0); MEAN CORPUSCULAR HGB CONC 33.8 g/dl (31.0-37.0); MEAN PLATELET VOLUME 9.9 fl (7.0-11.0); MONO # 0.5 (0.1-0.6); MONO % 10.2 % (1.0-6.0); RBC 4.74 10^6/uL (3.5-6.1); RED CELL DISTRIBUTION WIDTH 13.3 % (11.5-14.5)
[2018-03-10 07:10] LABS: ALB/GLOB RATIO 1.5 (1.1-1.8); ALT/SGPT 18 U/L (7-56); AST/SGOT 22 U/L (14-36); BLOOD UREA NITROGEN 17 mg/dL (7-21); CALCIUM 9.1 mg/dL (8.4-10.5); GFR AFRICAN-AMERICAN > 60; GFR NON-AFRICAN AMERICAN > 60
[2018-03-10 09:59] VITALS: BP 125/75
[2018-03-10] MEDS ORDERED: Enoxaparin 40 mg Syringe SC SCH (10:00)
[2018-03-10] MEDS: cefTRIAXone 1 gm 1 GM/100 ML BAG IVPB SCH (10:01)
--- NOTE | 2018-03-10 10:23 | CP.PCM.PN ---
Subjective - Date & Time of Evaluation Date of Evaluation: 03/10/18 Time of Evaluation: 08:50 - Subjective Subjective: No fevers, cough, breathing much better, no chest pain or palpitations. Objective - Vital Signs/Intake and Output Vital Signs (last 24 hours): Temp Pulse Resp BP Pulse Ox 98.0 F 96 H 18 115/76 100 03/10/18 06:00 03/10/18 06:00 03/10/18 06:00 03/10/18 06:00 03/10/18 06:00 Intake and Output: 03/10/18 03/10/18 06:59 18:59 Intake Total 0 Balance 0 - Medications Medications: Current Medications Aspirin (Aspirin Chewable) 81 mg PO DAILY [facility] Last Admin: 03/09/18 09:02 Dose: Not Given Azithromycin (Zithromax) 500 mg PO DAILY [facility] PRN Reason: Protocol Last Admin: 03/09/18 12:38 Dose: 500 mg Carvedilol (Coreg) 3.125 mg PO BID [facility] Last Admin: 03/09/18 17:17 Dose: 3.125 mg Digoxin (Lanoxin) 0.25 mg PO 1400 [facility] Last Admin: 03/09/18 13:46 Dose: 0.25 mg Enoxaparin Sodium (Lovenox) 40 mg SC DAILY [facility] PRN Reason: Protocol Escitalopram Oxalate (Lexapro) 20 mg PO DAILY [facility] Last Admin: 03/09/18 09:43 Dose: 20 mg Furosemide (Lasix) 40 mg PO DAILY [facility] Last Admin: 03/09/18 09:45 Dose: 40 mg Ceftriaxone Sodium (Rocephin 1 Gram Ivpb) 1 gm in 100 mls @ 100 mls/hr IVPB DAILY [facility] PRN Reason: Protocol Last Admin: 03/09/18 09:53 Dose: 100 mls/hr Levalbuterol HCl (Xopenex) 0.63 mg IH [id number] PRN PRN Reason: Shortness of Breath Levothyroxine Sodium (Synthroid) 125 mcg PO 0600 [facility] Last Admin: 03/10/18 06:23 Dose: 125 mcg Lisinopril (Zestril) 2.5 mg PO DAILY [facility] Last Admin: 03/09/18 09:46 Dose: 2.5 mg (Vilazodone Hcl [ (Viibryd] 40 Mg)) 40 mg PO DAILY [facility] Last Admin: 03/09/18 09:35 Dose: Not Given Spironolactone (Aldactone) 25 mg PO DAILY [facility] Last Admin: 03/09/18 09:43 Dose: 25 mg - Labs Labs: 03/10/18 06:00 03/10/18 06:00 PT 13.5 SECONDS (9.4-12.5) H 03/07/18 06:39 INR 1.17 (0.93-1.08) H 03/07/18 06:39 APTT 27.8 Seconds (25.1-36.5) 03/07/18 06:39 - Constitutional Appears: Non-toxic - Head Exam Head Exam: NORMAL INSPECTION - ENT Exam ENT Exam: Mucous Membranes Moist - Neck Exam Neck Exam: absent: Meningismus - Respiratory Exam Respiratory Exam: absent: Rales, Rhonchi - Cardiovascular Exam Cardiovascular Exam: +S1, +S2 - GI/Abdominal Exam GI & Abdominal Exam: Soft. absent: Tenderness Assessment and Plan - Assessment and Plan (Free Text) Plan: Assessment Consider right sided community-acquired pneumonia, clinically improving non-ischemic cardiomyopathy with decreased left ventricular function, etiology to be determined hypothyroidism history of pyloric stenosis Plan continue Rocephin and Zithromax day 3 - can switch to PO Vantin and PO Zithromax for another 3-4 days to complete as an outpatient; PCT is less than 0.05, blood cx are negative; urine Legionella Ag as well follow up Coxsackie serologies, which can be followed up as an outpatient reviewed 2D echo results and will follow up further Cardiology recommendations - reviewed Cardiac catheterization
--- NOTE | 2018-03-10 11:58 | PN ---
DATE: 03/10/2018 LOCATION: The patient in room 271, bed 2. REASON FOR CONSULTATION: Followup with shortness of breath, cardiomyopathy, pneumonia. SUBJECTIVE: The patient lying comfortably in bed without any chest pain, shortness of breath or palpitations. Her shortness of breath has improved. The patient was admitted with shortness of breath and found to have pneumonia and also found cardiomegaly and echocardiogram had shown left ventricle moderately dilated, systolic function severely impaired with approximate ejection fraction around 22%, mild aortic regurgitation, [id number] mitral regurgitation, [id number] tricuspid regurgitation, [id number] pulmonary hypertension with RVSP of 46 mmHg. The patient had cardiac cath yesterday, which showed normal coronaries, nonischemic cardiomyopathy with LV ejection fraction of 20% to 25%, EDP was 15 to 18 mmHg. PHYSICAL EXAMINATION: VITAL SIGNS: Blood pressure 115/76, respirations 18, pulse 74, the patient is afebrile. HEENT: Head is normocephalic. Eyes: Pupils normal. Conjunctivae normal. Nose and throat normal. NECK: JVP low. Carotid equal. THORAX: AP diameter normal. CARDIOVASCULAR: S1, S2. LUNGS: No significant rales. ABDOMEN: Soft. No tenderness, no organomegaly. Bowel sounds normal. EXTREMITIES: No clubbing, no cyanosis. LABORATORY DATA: WBC 5, hemoglobin 13.4, hematocrit 39.6, platelets 279. Sodium 139, potassium 4.6, BUN 17, creatinine 0.7, phosphorus 3.2, magnesium 2, AST and ALT normal, total protein and albumin normal. DIAGNOSES: Nonischemic cardiomyopathy, pneumonia. PLAN: The patient has been put on spironolactone 25 daily, aspirin 81 mg daily, carvedilol 3.125 daily, digoxin 0.25 daily, Lasix 40 mg p.o. daily. The patient also on levothyroxine 125 mcg p.o. daily, lisinopril 2.5 mg p.o. daily. The patient also on antibiotics azithromycin 500 mg p.o. daily, ceftriaxone 1 g IV daily. From cardiac point of view, the patient should continue these medications and should repeat MUGA scan in three to six months. If ejection fraction is still below 35%, the patient will need AICD insertion. We will follow. Santo Ramires MD
[2018-03-10 12:17] VITALS: PULSE 90
--- NOTE | 2018-03-10 21:05 | DS ---
HISTORY OF PRESENT ILLNESS: A 37-year-old white female with history of hypothyroidism, depression, who was admitted with shortness of breath, palpitations. Patient was found to have pneumonia on CT and congestive heart failure with elevated BNP and an echocardiogram showing diffuse hypokinesis, low ejection fraction and akinetic septum. Patient was taken to labor conciliator by Dr. Gutierrez. Patient was found to have a myocardial bridge, normal coronaries and a cardiomyopathy consistent with low ejection fraction of 25%. Patient was placed on digoxin, spironolactone, Lasix, Coreg and lisinopril. Patient has an appointment to see a manager quality improvement at [facility], who has treated her son for Tetralogy of Fallot in the past, for a second opinion. Patient will be discharged home on the current medications. She will be instructed to drink no alcohol, not to smoke, to be well vaccinated with pneumococcal and influenza vaccines and to follow up with recurrent echos to follow her ejection fraction over the next 2 to 3 months. Final discharge diagnoses of this patient would be cardiomyopathy, unknown etiology, possible viral myocarditis, congestive heart failure secondary to cardiomyopathy, pneumonia and supraventricular tachycardia. Venkata Luis MD
== END 2018-03-10 11:26 | disposition home or self-care (01) | DRG 193 ==
LOC: ED 06:25 → ERH 09:00 → 2RSO 09:48
PROVIDERS: ADMIT Internal Medicine; ATTEND Internal Medicine
PROC: 4A023N7 Measurement of Cardiac Sampling and Pressure, Left Heart, Percutaneous Approach (ICD-10-PCS; principal; 2018-03-09)
PROC: B2151ZZ Fluoroscopy of Left Heart using Low Osmolar Contrast (ICD-10-PCS; 2018-03-09)
PROC: B2111ZZ Fluoroscopy of Multiple Coronary Arteries using Low Osmolar Contrast (ICD-10-PCS; 2018-03-09)
DX: J18.9 Pneumonia, unspecified organism (principal); I40.0 Infective myocarditis; I42.9 Cardiomyopathy, unspecified; I47.1 Supraventricular tachycardia; Q24.5 Malformation of coronary vessels; I50.20 Unspecified systolic (congestive) heart failure; I11.0 Hypertensive heart disease with heart failure; I08.3 Combined rheumatic disorders of mitral, aortic and tricuspid valves; E03.9 Hypothyroidism, unspecified; E87.6 Hypokalemia; I27.20 Pulmonary hypertension, unspecified; I44.7 Left bundle-branch block, unspecified; I73.9 Peripheral vascular disease, unspecified; J45.909 Unspecified asthma, uncomplicated; Z79.82 Long term (current) use of aspirin